=== PATIENT | male | born 2000 | race Caucasian/White ===

== ENCOUNTER → 2022-01-17 13:34 | Outpatient (CLI) | payer OTHER, SELFPAY ==
[2022-01-17 14:43] LABS: Basophils # 0.1 K/mm3 (0-0.2); Basophils % 1.4 % (0.1-2.0); Eosinophils # 0.1 K/mm3 (0.0-0.4); Eosinophils % 0.9 % (0.1-12.0); Hematocrit 51.2 % (42.0-52.0); Lymphocytes # 2.3 K/mm3 (0.7-4.5); Lymphocytes % 24.9 % (10-50); Mean Corpuscular HGB Conc 33.2 g/dL (31.8-35.4); Mean Corpuscular Hemoglobin 32.7 pg (27.0-31.2); Mean Corpuscular Volume 98.6 fl (80-94); Mean Platelet Volume 8.3 fl (7.4-10.4); Monocytes # 0.6 K/mm3 (0.1-1.0); Neutrophils # 6.3 K/mm3 (1.8-7.8); Neutrophils % 66.8 % (37.0-80.0); Platelet Count 402 K/mm3 (142-424); Red Blood Count 5.19 M/mm3 (4.60-6.20); Red Cell Distribution Width 12.7 % (11.5-17.5); White Blood Count 9.4 K/mm3 (4.5-13.0)
[2022-01-17 14:55] LABS: Alanine Aminotransferase 26 U/L (12-78); Albumin Level 4.8 g/dl (3.5-5.0); Albumin/Globulin Ratio 1.7 (1.1-1.8); Alkaline Phosphatase 81 U/L (38-126); Anion Gap 16.5 mEq/L (5-15); Aspartate Amino Transferase 35 U/L (17-59); Bilirubin,Total 1.2 mg/dl (0.2-1.3); Blood Urea Nitrogen 16 mg/dl (9-20); Calcium 9.7 mg/dl (8.4-10.2); Carbon Dioxide 22 mmol/L (22.0-30.0); Chloride 104 mmol/L (98-107); Chol/HDL Ratio 2.8 (1-3.5); Cholesterol 134 mg/dl (140-200); Estimated Glomerular Filt Rate 123 ml/min (>60); GFR (African American) 149 ML/MIN (>60); Globulin 2.8 g/dL (1.3-3.2); Glucose 84 mg/dl (74-100); HDL Cholesterol 48 mg/dl (40-60); Potassium 4.5 mmoL/L (3.5-5.1); Sodium 138 mmol/L (136-145); Total Protein,Serum 7.6 g/dl (6.3-8.2); Triglycerides 54 mg/dl (30-150); VLDL Cholesterol 11 mg/dL (0-40)
[2022-01-17 15:05] LABS: Direct LDL Cholesterol 62.38 mg/dL (100-129)
[2022-01-17 15:24] LABS: Thyroid Stimulating Hormone 1.44 uIU/mL (0.465-4.68)
== END ==
PROVIDERS: PCP Student in an Organized Health Care Education/Training Program; Visit Provider Student in an Organized Health Care Education/Training Program
DX: R53.83 Other fatigue (principal); I10 Essential (primary) hypertension
CPT/HCPCS: 80053; 80061; 84443; 85025

== ENCOUNTER → 2022-01-25 13:54 | Outpatient (CLI) | payer OTHER, SELFPAY ==
--- NOTE | 2022-01-25 14:29 | US_ITS ---
FINAL REPORT CLINICAL HISTORY: Cervical Lymphadenopathy FINDINGS: NECK SOFT TISSUE ULTRASOUND Limited sonographic images were obtained of the neck. There are small lymph nodes at the area of interest. No other mass is identified. There is no fluid collection. IMPRESSION: Small lymph nodes at the area of interest. Reviewed, Interpreted and Dictated by Lux Green III, MD Transcribed by Herminio Tafoya Authenticated and [facility]
== END ==
PROVIDERS: PCP Family Medicine; Visit Provider Student in an Organized Health Care Education/Training Program
DX: R59.0 Localized enlarged lymph nodes (principal)
CPT/HCPCS: 76536